=== PATIENT | female | born 1970 | race Native Hawaiian/Other Pacific Islander ===

== ENCOUNTER 2018-10-09 10:08 | Emergency (ER) | payer OTHER ==
[2018-10-09] MEDS ORDERED: VICKS SINEX NS ONE (10:45)
--- NOTE | 2018-10-09 10:58 | Emergency Department Report ---
ED ENT HPI - General Chief complaint: Nosebleed Stated complaint: NOSE BLEED Time Seen by Provider: 10/09/18 10:28 Source: patient, EMS Mode of arrival: Ambulatory Limitations: No Limitations - History of Present Illness Initial comments: 47-year-old female presents to the emergency room complaining of nosebleed that started about one hour ago. Patient reports that she also had a nosebleed on Tuesday. Patient denies any trauma to the nose denies picking the nose denies any headache nausea no vomiting. Patient reports that she is currently taken a bare aspirin 81 mg secondary to having a TIA 10 years ago was told to take an aspirin. Patient reports that the bleeding comes from the left nostril. Current past medical histories only a TIA 10 years ago currently takes no medications besides an aspirin daily and has no known drug allergies. MD complaint: epistaxis Onset/Timin -: days(s) Location: nose Severity: mild Context-Epistaxis: aspirin use - Related Data Allergies Allergy/AdvReac Type Severity Reaction Status Date / Time No Known Allergies Allergy Unverified 10/09/18 10:15 ED Dental HPI - General Chief complaint: Nosebleed Stated complaint: NOSE BLEED Time Seen by Provider: 10/09/18 10:28 Source: patient, EMS Mode of arrival: Ambulatory Limitations: No Limitations - Related Data Allergies Allergy/AdvReac Type Severity Reaction Status Date / Time No Known Allergies Allergy Unverified 10/09/18 10:15 ED Review of Systems ROS: Stated complaint: NOSE BLEED Other details as noted in HPI Comment: All other systems reviewed and negative ENT: epistaxis ED Past Medical Hx - Past Medical History Previous Medical History?: Yes Hx CVA: Yes (TIA) - Surgical History Past Surgical History?: No - Social History Smoking Status: Never Smoker Substance Use Type: None ED Physical Exam - General Limitations: No Limitations General appearance: alert, in no apparent distress - Head Head exam: Present: atraumatic, normocephalic - Expanded ENT Exam Expanded Ear exam: Present: other (both nostrils are patent. No active bleeding appreciated.) ED Course Vital Signs 10/09/18 10:09 Temperature 97.9 F Pulse Rate 80 Respiratory 20 Rate Blood Pressure 157/87 O2 Sat by Pulse 100 Oximetry ED Medical Decision Making - Medical Decision Making 7-year-old female comes in with epistaxis 1 hour. I discussed the patient we will try Afrin nasal spray to see if we can help with her bleeding also discussed the patient if this is not successful we will need may need to do a nasal trumpet/rapid Rhino. Patient verbalized understanding. Critical care attestation.: If time is entered above; I have spent that time in minutes in the direct care of this critically ill patient, excluding procedure time. ED Disposition Clinical Impression: Left-sided nosebleed Disposition: DC-01 TO HOME OR SELFCARE Is pt being admited?: No Does the pt Need Aspirin: No Condition: Stable Instructions: Epistaxis (ED) Additional Instructions: Use the Afrin as discussed twice a day orally as needed. Follow-up with her primary care provider if his symptoms persist or gets worse. Referrals: Your, provider [Other] - 3-5 Days
[2018-10-09 11:16] VITALS: BP 154/85
== END 2018-10-09 11:15 | disposition home or self-care (01) ==
LOC: ED 10:08
DX: R04.0 Epistaxis (principal); Z86.73 Personal history of transient ischemic attack (TIA), and cerebral infarction without residual deficits
CPT/HCPCS: 99283